=== PATIENT | female | born 1975 | race Caucasian/White ===

== ENCOUNTER → 2018-03-04 | Outpatient (CLI) | payer OTHER ==
--- NOTE | 2018-03-04 14:09 | Diagnostic Imaging Report ---
Indication: Palpable fullness in the outer and inner aspect of the left breast. Correlation is made with prior mammogram from 05/01/2015 and 06/08/2015. 2-D and 3-D bilateral diagnostic mammography was performed with CAD. Scattered fibroglandular densities are identified bilaterally. BB markers were placed at the areas of palpable fullness in the outer and inner aspect of the left breast. There is a marker clip in the medial left breast adjacent to a nodule which was previously biopsied. 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 No new mass is seen. Outer left breast is unremarkable. Small density was seen in the central right breast. Spot compression view and rolled CC view show no underlying abnormality and this most likely represents superimposed tissue. No malignant-appearing microcalcifications are seen. Axillae are unremarkable. Impression: BI-RADS 0 No suspicious mammographic abnormality is seen. Even so, directed sonographic interrogation of the areas of palpable fullness in the inner and outer left breast is recommended and will be performed today. ACR BI-RADS Category 0: Incomplete. (Needs additional imaging evaluation). Result letter will be mailed to the patient. Note: At least 10% of breast cancer is not imaged by mammography. Dictated by: Dictated on workstation # [id number]
--- NOTE | 2018-03-04 18:09 | Diagnostic Imaging Report ---
INDICATION: Palpable fullness in the outer and inner aspects of the left breast. FINDINGS: Sonographic interrogation of the area of thickening at the 9 o'clock location of the left breast and lump at the 3 clock location of the left breast approximately 6 cm from the nipple was performed. No sonographic abnormality is seen. No solid or cystic mass is detected. IMPRESSION: No sonographic abnormality is seen. Continued close clinical and self breast exam is recommended to confirm stability of the areas of palpable abnormality. ACR BI-RADS Category 1: Negative. Dictated by: Dictated on workstation # [id number]
== END ==
LOC: RAD 13:19
PROVIDERS: ATTEND Nurse Practitioner Family
DX: D24.2 Benign neoplasm of left breast (principal)
CPT/HCPCS: 76642; 77066